=== PATIENT | female | born 1990 | race Two or more races ===

== ENCOUNTER 2025-05-02 12:42 | Emergency (ER) | payer BC, SELFPAY ==
[2025-05-02 12:43] VITALS: BMI 31.5
[2025-05-02 12:50] VITALS: BP 124/79; PULSE 95; RESP 24; TEMP 36.6; O2SAT 100
--- NOTE | 2025-05-02 12:54 | XR_ITS ---
Examination: CT abdomen and pelvis without contrast. Coronal 3-D reconstructions. Sagittal 2-D reconstructions. Date and time of exam:May 02, 2025 1456 hours INDICATIONS: Right-sided flank pain today CTDI: vol (mGy): 12.4 DLP: (mGycm): 752 Technique: Axial images of the abdomen have been obtained, 3 mm slice thickness Intravenous contrast material has not been administered. Low dose protocols were performed. One or more of the following dose reduction techniques were used; automated exposure control, adjustment of the mA and/or KV according to patient size, use of iterative reconstruction technique. Findings: No focal liver or splenic lesions Gastric sutures Absent gallbladder No pancreatic or adrenal mass. No renal or ureteral calculi, no hydronephrosis, no perinephric stranding Normal appendix No bowel obstruction No diverticulitis Anteverted uterus No bladder mass or bladder calculi Moderate disc narrowing L5-S1 IMPRESSION: No renal or ureteral calculi, no hydronephrosis Normal appendix No bladder mass or bladder calculi
[2025-05-02 13:30] LABS: Basophils # (Auto) 0.0 Thou/mm3 (0.0-0.2); Basophils % (Auto) 0 % (0-2.5); Eosinophils # (Auto) 0.0 Thou/mm3 (0.0-0.5); Eosinophils % (Auto) 0 % (0-10); Hematocrit 39.4 % (36.0-46.0); Hemoglobin 12.7 g/dL (12.0-16.0); Immature Granulocytes Auto 0.06 Thou/mm3 (0.00-0.00); Lymphocytes # (Auto) 0.9 Thou/mm3 (1.0-4.8); Lymphocytes % (Auto) 7 % (10-50); Mean Corpuscular HGB Conc 32.2 g/dl (31.0-37.0); Mean Corpuscular Hemoglobin 29.1 pg (25.0-35.0); Mean Corpuscular Volume 90 fL (80-100); Monocytes # (Auto) 0.6 Thou/mm3 (0.0-0.8); Monocytes % (Auto) 4 % (0-12); Neutrophils # (Auto) 12.5 Thou/mm3 (1.8-7.7); Neutrophils % (Auto) 89 % (37-80); Nucleated Red Blood Cell # 0.00 Thou/mm3 (0.00-0.00); Nucleated Red Blood Cell % 0 /100 WBC (0); Platelet Count 198 Thou/mm3 (140-440); RDW Standard Deviation 41.7 fL (36.4-46.3); Red Blood Count 4.37 Miln/mm3 (4.00-5.20); White Blood Count 14.1 Thou/mm3 (3.6-11.0)
[2025-05-02 13:42] LABS: Alanine Aminotransferase 26 U/L (10-49); Albumin, Serum 4.4 gm/dL (3.5-5.0); Albumin/Globulin Ratio 1.6 (1.2-2.2); Alkaline Phosphatase 74 U/L (46-116); Anion Gap 11 (7-16); Aspartate Amino Transferase 56 U/L (0-34); BUN/Creatinine Ratio 13 Ratio (12-20); Bilirubin,Total 0.6 mg/dL (0.3-1.2); Blood Urea Nitrogen 10 mg/dL (9-23); Calcium 8.7 mg/dL (8.3-10.6); Calcium (Corrected) 8.7 mg/dL (8.5-10.1); Carbon Dioxide 23.3 mMol/L (20.0-31.0); Chloride 106 mMol/L (98-107); Creatinine (Component) 0.8 mg/dL (0.6-1.3); Estimated Creatinine Clearance 124.3 mL/min (>60); Globulin 2.7 gm/dL (2.3-3.5); Glucose 112 mg/dL (74-106); Lipase 31 U/L (12-53); Osmolality,Calculated 279 (275-295); Potassium 3.6 mMol/L (3.4-5.1); Sodium 140 mMol/L (136-145); Total Protein 7.1 gm/dL (5.7-8.2); eGFR > 60 See Note
[2025-05-02 13:45] LABS: Collection Type, Urine Clean Catch
[2025-05-02 14:15] LABS: Bilirubin,Urine Negative (Negative); Blood,Urine Negative (Negative); Clarity,Urine Clear (Clear/Hazy); Color,Urine Lt-Yellow (Lt Yel-Yel); Glucose, Urine Negative (Negative); Ketones,Urine Negative (Negative); Leukocyte Esterase,Urine Positive (Negative); Nitrite,Urine Negative (Negative); PH,Urine 6.5 (5.0-7.0); Protein,Urine Negative (Neg - Trace); RBC,Urine 4 /hpf (0-3); Specific Gravity,Urine 1.018 (1.001-1.035); Squamous Epithelial Cell,Urine 4 /hpf (0-5); Urobilinogen,Urine Negative mg/dL (0.0-1.0); WBC,Urine 38 /hpf (0-5)
[2025-05-02] MEDS: SODIUM CHLORIDE 0.9% 1000 ML 1,000 ML 999 ML IV (14:22)
[2025-05-02 14:23] LABS: HCG Qualitative,Urine Negative
[2025-05-02] MEDS: MORPHINE SULF INJ 10 MG/ML VIAL 4 MG IVP ×2 (14:23→15:25)
[2025-05-02] MEDS: ONDANSETRON INJ 2 MG/ML INJ 2 ML 4 MG IVP (14:23)
--- NOTE | 2025-05-02 14:31 | PC.NURSE ---
PT IN TODAY WITH ABD PAIN RUQ THAT STARTED THIS MORNING. PT STATES THAT SHE IS NAUSEOUS BUT IS NOT VOMITING ANYTHING UP . PT RATES PAIN AT 8/10 AT THIS TIME AND STATES THAT IT GETS WORSE WITH MOVEMENT. PT IS A/O X4 AT THIS TIME. PT DID HAVE HER GALLBLADDER REMOVED 04/2024. SIG OTHER AT BEDSIDE.
--- NOTE | 2025-05-02 15:27 | PD.EDABDPN ---
ED Abdominal Pain RME/HPI General Chief Complaint: Abdominal Pain Stated complaint: SEVERE ABD PAIN, DIARRHEA/NAUSEA, CHEST TIGHTNESS Time seen by provider: 05/02/25 12:48 Arrival date/time: 05/02/25 12:42 This is a case of 34-year-old female came in in the emergency room due to upper abdominal pain radiating to midsternal chest pain burning in character associated with nausea vomiting and diarrhea for 3 days denies any constipation palpitation shortness of breath or blood in stool patient have history of cholecystectomy and plastic surgery Limitations: no limitations Related Data Previous Rx's ?Medication ?Instructions ?Recorded cephalexin 500 mg capsule 500 mg PO TID 10 days #30 caps 05/02/25 famotidine 20 mg tablet (Pepcid) 20 mg PO BID 30 days #60 tabs 05/02/25 omeprazole 40 mg capsule,delayed 40 mg PO BID 30 days #60 caps 05/02/25 release ondansetron 4 mg disintegrating 4 mg PO Q8H PRN nausea and 05/02/25 tablet vomiting #20 tabs Allergies Allergy/AdvReac Type Severity Reaction Status Date / Time No Known Allergies Allergy Verified 05/02/25 12:45 Review of Systems Review of Systems Systems Reviewed: All systems reviewed, normal except as documented Constitutional Constitutional: Reports system reviewed and no additional complaints, except as documented, Reports as per HPI, Denies anorexia, Denies chills and Denies fever(s) Cardiovascular Cardiovascular: Reports system reviewed and no additional complaints, except as documented, Reports as per HPI, Denies acrocyanosis, Reports chest pain, Denies chest pain at rest, Denies chest pain with activity, Denies claudication, Denies diaphoresis, Denies dyspnea, Denies dyspnea on exertion, Denies edema, Denies irregular heart rhythm, Denies leg edema, Denies leg ulcers, Denies lightheadedness, Denies orthopnea, Denies palpitations, Denies paroxysmal nocturnal dyspnea, Denies pedal edema, Denies radiating jaw, neck or arm pain, Denies rapid heart rate, Denies slow heart rate and Denies syncope Respiratory Respiratory: Reports system reviewed and no additional complaints, except as documented, Reports as per HPI, Denies dyspnea and Denies dyspnea on exertion Gastrointestinal Gastrointestinal: Reports system reviewed and no additional complaints, except as documented, Reports abdominal pain, Denies diarrhea, Reports nausea and Reports vomiting Genitourinary Genitourinary: Reports system reviewed and no additional complaints, except as documented, Reports as per HPI and Reports dysuria Neurologic Neurologic: Reports system reviewed and no additional complaints, except as documented, Reports as per HPI and Denies syncope Endocrine Endocrine: Denies palpitations Past Medical History Past Medical History CARDIAC: Negative Congestive Heart Failure RESPIRATORY: Positive Asthma; Negative Chronic Obstructive Pulmonary Disease (COPD) GENITOURINARY: Negative Renal Disease REPRODUCTIVE: Positive Previous Pregnancies MUSCULOSKELETAL: Positive Arthritis (PSORIATIC) ENDOCRINE: Negative Diabetes Mellitus Type 1 or Diabetes Mellitus Type 2 OTHER HISTORY: Negative Blood Transfusions or Anesthesia Reactions Surgical History SURGICAL: Positive Abdominal Surgery (GASTIRC SLEEVE), Tubal Ligation and Section (X2) Social History SMOKING STATUS: Never smoker ED Exam General Limitations: Present no limitations General appearance: Present alert, in no apparent distress and other (Awake alert oriented not in distress nontoxic looking well-hydrated well-nourished) Head Head exam: Present atraumatic, normocephalic and normal inspection Eye Eye exam: Present normal appearance, PERRL and EOMI ENT ENT exam: Present normal exam, normal oropharynx and mucous membranes moist Neck Neck exam: Present normal inspection, full ROM and trachea midline; Absent tenderness, meningismus or lymphadenopathy Chest Chest inspection: Present normal inspection and symmetric chest wall rise; Absent tenderness, rash or abscess Respiratory Respiratory exam: Present normal lung sounds bilaterally; Absent respiratory distress, wheezes, stridor, accessory muscle use or prolonged expiratory phase Cardiovascular Cardiovascular exam: Present regular rate, normal rhythm and normal heart sounds; Absent bradycardia, tachycardia, irregular rhythm, systolic murmur or diastolic murmur Abdominal Exam Abdominal exam: Present soft, tenderness (Mild tenderness on both upper abdomen and epigastric), normal bowel sounds and other (No CVA tenderness); Absent distention, guarding, rebound, rigidity, diminished bowel sounds, hyperactive bowel sounds, hypoactive bowel sounds, obturator sign, Cohn's sign, Rovsing's sign or tenderness at McBurney's Point Abdominal tenderness: Present RUQ, LUQ, epigastrium and mild Extremities Exam Extremities exam: Present normal inspection and full ROM Back Exam Back exam: Present normal inspection and full ROM Neurological Exam Neurological exam: Present alert, oriented X3, CN II-XII intact, normal gait and reflexes normal; Absent motor sensory deficit Psychiatric Psychiatric exam: Present normal affect and normal mood Skin Skin exam: Present warm, dry, intact and normal color Course Quality Measures none Orders Category Date Time Status EKG (ED ONLY) *Do not use* NOW Care 05/02/25 15:[address] abdomen pelvis wo con Stat Exams 05/02/25 12:54 Completed EKG (ED Only) Stat Exams 05/02/25 15:28 Ordered BNP [B-Type Natriuretic Peptide] Stat Lab 05/02/25 13:09 Completed CBC Stat Lab 05/02/25 13:09 Completed Comprehensive Metabolic Panel Stat Lab 05/02/25 13:09 Completed Drug Screen,Urine Stat Lab 05/02/25 13:33 Completed HCG Qualitative,Urine Stat Lab 05/02/25 13:33 Completed Lipase Stat Lab 05/02/25 13:09 Completed Troponin I Stat Lab 05/02/25 13:09 Completed Urinalysis Stat Lab 05/02/25 13:33 Completed Morphine Inj Med 05/02/25 12:54 Discontinued 4 mg IVP X1 ONE Morphine Inj Med 05/02/25 15:03 Discontinued 4 mg IVP X1 ONE Ondansetron Inj [Zofran Inj] Med 05/02/25 12:54 Discontinued 4 mg IVP X1 ONE Pantoprazole Inj [Protonix Inj] Med 05/03/25 09:00 Discontinued 40 mg IVP QDAY Pantoprazole Inj [Protonix Inj] Med 05/02/25 15:03 Discontinued 40 mg IVP X1 ONE Sodium Chloride 0.9% 1000 ml [Ns] 1,000 ml Med 05/02/25 12:54 Discontinued IV 999 mls/hr cefTRIAXone/D5w 1gm IV premix [Rocephin/D5w 1gm IV Med 05/02/25 15:27 Discontinued premix] 1 gm in 50 ml IV X1 Vital Signs Vital signs: Vital Signs Temperature 98 F 05/02/25 12:50 Pulse Rate 95 05/02/25 12:50 Respiratory Rate 24 H 05/02/25 12:50 Blood Pressure 124/79 05/02/25 12:50 Pulse Oximetry (%) 100 05/02/25 12:50 Oxygen Delivery Method Room Air 05/02/25 12:50 Patient is afebrile not tachycardic not tachypneic BP stable oxygen saturation is 100% in room air Abdominal Pain MDM MDM Narrative MDM Narrative:: This is a case of 34-year-old female came in in the emergency room due to upper abdominal pain radiating to midsternal chest pain burning in character associated with nausea vomiting and diarrhea for 3 days denies any constipation palpitation shortness of breath or blood in stool history of gastric surgery and cholecystectomy physical examination patient is awake alert oriented not in distress nontoxic looking well-hydrated well-nourished vital signs stable BP stable not tachycardic not tachypneic not hypoxic and afebrile lungs sound is clear no crackles no rales no retraction no stridor heart normal rate regular rhythm no murmur abdominal exam noted mild tenderness in the epigastric area right upper quadrant and left upper quadrant no guarding no rebound no rigidity negative psoas negative straight or negative Rovsing's negative McBurney's negative Cohn sign negative CVA tenderness at the time of exam no signs and symptoms of sepsis acute abdomen or dehydration blood test showed no leukocytosis no anemia kidney and liver function is normal no electrolyte imbalance lipase is normal troponin is negative EKG is normal sinus rhythm BNP is normal urinalysis showed positive urinary tract infection thus patient was given a dose of ceftriaxone here in the emergency room and was discharged with cephalexin CT scan showed normal based on my physical examination and history patient symptoms suggestive of noncardiac chest pain abdominal exam pain is because of gastritis patient was given a bolus of normal saline Protonix Zofran and 2 doses of morphine patient condition markedly improved and resolved abdominal exam is benign nontender modified diet was also advised patient was advised to follow-up with PCP to be referred to administration manager for chest pain for possible echocardiogram stress test and Holter monitor for she was also advised to see 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 Patient verbalized no further complains explained diagnosis and answered patient question. Patient is comfortable with the proposed management plan including the need to follow up with his/her primary care physician and any specialist if applicable Discussed patient for any urgent condition or worsening sx, He/She needed to go to emergency room immediately or call 911. Patient acknowledge the responsibility to follow up as instructed and to monitor her/his symptoms. For any persistence of the symptoms for more than 3-5 days return precaution advised. Discussed the result of the test and was given printed discharge instruction Patient data External records reviewed:: [facility] previous records Clinical information provided by:: patient Social determinants that could affect healthcare access:: none Patient has the following chronic illnesses:: None How is presenting disease/condition affected by chronic disease/condition?: no chronic disease Evaluation data The following diagnostics were reviewed and interpreted by me:: lab results and radiology exam(s) Lab and/or radiology exams considered but not ordered:: Reviewed Interpretation Summary: Reviewed Medications / Prescriptions Medications or Prescriptions considered but not ordered:: Given Medication administrations:: Medication Administration History Discontinued Medications Sodium Chloride (Ns) 1,000 mls @ 999 mls/hr IV .Q1H1M ONE Stop: 05/02/25 13:54 Last Admin: 05/02/25 14:22 Dose: 999 mls/hr Documented By: TIMBO Ceftriaxone Sodium/Dextrose (Rocephin/D5w 1gm Iv Premix) 1 gm in 50 mls @ 100 mls/hr IV X1 ONE Stop: 05/02/25 15:56 Last Admin: 05/02/25 15:33 Dose: 100 mls/hr Documented By: TIMBO Morphine Sulfate (Morphine Sulf Inj 10 Mg/Ml Vial) 4 mg IVP X1 ONE Stop: 05/02/25 12:55 Last Admin: 05/02/25 14:23 Dose: 4 mg Documented By: TIMBO Morphine Sulfate (Morphine Sulf Inj 10 Mg/Ml Vial) 4 mg IVP X1 ONE Stop: 05/02/25 15:04 Last Admin: 05/02/25 15:25 Dose: 4 mg Documented By: TIMBO Ondansetron HCl (Ondansetron Inj 2 Mg/Ml Inj 2 Ml) 4 mg IVP X1 ONE; Protocol Stop: 05/02/25 12:55 Last Admin: 05/02/25 14:23 Dose: 4 mg Documented By: TIMBO Pantoprazole Sodium (Pantoprazole Inj 40 Mg Vial) 40 mg IVP QDAY [place] Stop: 06/02/25 08:59 Pantoprazole Sodium (Pantoprazole Inj 40 Mg Vial) 40 mg IVP X1 ONE Stop: 05/02/25 15:04 Last Admin: 05/02/25 15:24 Dose: 40 mg Documented By: TIMBO Given Consultations Consultation(s) initiated? (list below): No Diagnosis Differential diagnosis abdominal pain: abdominal pain, acute appendicitis, calculus of kidney, constipation, diverticulitis, gastroenteritis and other (Gastritis) Most likely diagnosis given after review of the tests above:: Gastritis urinary tract infection Admission Indicated Admission indicated?: not indicated Explain why admission is indicated or not indicated:: Not indicated Admission Request Was there a request for admission?: No Disposition Plan Disposition Plan: Discharge Discharge Attestation Discharge Attestation: The patient and all family members were given an opportunity to ask questions and understood the discharge instructions. Discharge instructions specifically effects, indications for sooner follow up or return to the emergency department, and the expected course of current diagnosis. Patient condition: Stable Discharge Plan Plan Patient Disposition: HOME (Self Care) Patient condition on transfer: Stable Prescriptions/Referrals Prescriptions/Med Rec: New omeprazole 40 mg capsule,delayed release(DR/EC) 40 mg PO BID 30 Days Qty: 60 0RF famotidine [Pepcid] 20 mg tablet 20 mg PO BID 30 Days Qty: 60 0RF ondansetron 4 mg tablet,disintegrating 4 mg PO Q8H PRN (Reason: nausea and vomiting) Qty: 20 0RF cephalexin 500 mg capsule 500 mg PO TID 10 Days Qty: 30 0RF [facility] [Primary Care Provider] - In 1 week Earl Knox MD [Physician] - 05/03/25 (For further evaluation and treatment of gastritis is status post gastric surgery) Jacek Toledo MD [Physician] - In 1 week (For further evaluation and treatment of chest pain for possible echocardiogram stress test and Holter monitor) Problem List Clinical Impression: Chest pain of unknown etiology, Abdominal pain, Gastritis, Urinary tract infection Patient/Caregiver Discharge Instructions Education Materials: Abdominal Pain, Urinary Tract Infections in Women, ED Chest Pain, Noncardiac, ED Gastritis (Adult) Additional Instructions: Follow-up with your primary care physician in 2 days for reevaluation and to be referred to administration manager for further evaluation and treatment and possible echocardiogram stress test and Holter monitor follow-up with your slitter scorer cut off operator for follow-up for your gastric sleeve and gastritis worsening symptoms or current symptoms persistence of symptoms or any emergent concern call 911 or go to the nearest emergency room avoid skipping of meals avoid spicy food avoid fatty fried high cholesterol foods avoid soda coffee or alcohol finish the course of antibiotic increase water intake keep hydrated spatulate Gatorade for every bouts of vomiting Print Language: Kinyarwanda Stand Alone Forms: Layne Award Info., Patient Portal Info Letter PA/STREET CAR INSPECTOR Supervising Physician PA/STREET CAR INSPECTOR Supervising Physician: DR Narvaez
[2025-05-02] MEDS: cefTRIAXone/D5w 1gm IV premix 1 GM/50 ML BAG IV (15:33)
[2025-05-02 15:59] LABS: Troponin I < 0.020 ng/mL (0.0-0.045)
[2025-05-02 16:00] LABS: Amphetamine/Methamp Scrn,U Negative (Negative); Barbiturate Screen,Urine Negative (Negative); Benzodiazepines Screen,Urine Negative (Negative); Benzoylecgonine Screen, Ur Negative (Negative); Fentanyl Screen,Urine Negative (Negative); Opiate Screen,Urine Negative (Negative); THC Screen,Urine Negative (Negative)
[2025-05-02 16:16] LABS: B-Type Natriuretic Peptide 38 pg/mL (0-100)
[2025-05-02 16:57] VITALS: BP 104/68; PULSE 85; O2SAT 100
== END 2025-05-02 16:58 | disposition home or self-care (01) ==
PROVIDERS: Nurse Practitioner Family; Emergency Provider Emergency Medicine; PCP Nurse Practitioner Family
DX: K29.70 Gastritis, unspecified, without bleeding (principal); N39.0 Urinary tract infection, site not specified
CPT/HCPCS: 36415; 74176; 80053; 80307; 81001; 81025; 83690; 83880; 84484; 85025; 96361; 96365; 96375; 96376; 99283; J0696; J2270; J2405; J2470; J7030

== ENCOUNTER → 2025-06-20 | Outpatient (CLI) | payer BC, SELFPAY ==
[2025-06-20 12:48] LABS: Thyroid Stimulating Hormone 1.61 uIU/mL (0.55-4.78)
[2025-06-24 07:20] LABS: ANA Screen, IFA NEGATIVE (NEGATIVE)
== END | disposition home or self-care (01) ==
LOC: COPL 11:26
PROVIDERS: PCP Nurse Practitioner Family; Referring Provider Specialist; Visit Provider Specialist
DX: E78.9 Disorder of lipoprotein metabolism, unspecified (principal)
CPT/HCPCS: 36415; 84443; 86038